=== PATIENT | female | born 1995 | race Caucasian/White ===

== ENCOUNTER 2016-09-17 18:23 | Emergency (ER) | payer OTHER ==
[2016-09-17 18:27] VITALS: BP 111/72; PULSE 47; RESP 16; TEMP 97.5; O2SAT 97
--- NOTE | 2016-09-17 18:36 | EDPHY ---
H & P Time Seen by Provider: 09/17/16 18:29 HPI/ROS: CHIEF COMPLAINT: Left index finger laceration HISTORY OF PRESENT ILLNESS: 21-year-old female with up-to-date tetanus sustained accidental laceration to her left index finger distal phalanx when she accidentally pulsed the honey grader and blender when she was reaching in. Occurred shortly prior to arrival. No paresthesia. PHYSICAL EXAM (Prior to examination, patient consented to physical exam, hands were washed and my usual and customary physical exam procedures followed) 1) GENERAL: Well-developed, well-nourished, alert and oriented. Appears to be in no acute distress. 2) HEAD: Normocephalic 3) HEENT: sclera anicteric 4) LUNGS: Breathing comfortably. 5) SKIN: left index finger distal phalanx ulnar aspect 2 cm well-demarcated laceration. 6) MUSCULOSKELETAL: flexor, extensor function independently tested at the MCP, PIP, D IP with no deficits appreciated. 7) NEUROLOGIC: Two-point discrimination full sensation distally Smoking Status: Never smoked Constitutional: Initial Vital Signs Temperature (C) 36.4 C 09/17/16 18:24 Heart Rate 47 L 09/17/16 18:24 Respiratory Rate 16 09/17/16 18:24 Blood Pressure 111/72 09/17/16 18:24 O2 Sat (%) 97 09/17/16 18:24 O2 Delivery Mode Room Air Allergies/Adverse Reactions: No Known Allergies Allergy (Unverified 09/17/16 18:28) Home Medications: Medication Instructions Recorded MIRENA 09/17/16 MDM/Departure - MDM Procedures: Procedure: Laceration repair. I explained the indications, risks and benefits for both laceration repair and anesthetic administration. Verbal consent was obtained from the patient . The laceration on the left index finger was anesthetized using 0.5% bupivicaine without epinephrine digital nerve block. After anesthetic administered the patient was observed for a period of time and had no apparent adverse effects. The wound was cleaned, prepped, draped in normal sterile fashion and explored to its base. No foreign body seen, no foreign bodies palpated. There were no deep structures involved. No tendon injury was identified. The wound was repaired with 6 simple interrupted 5 O Prolene suture. The wound repair was simple. The procedure was performed by myself. Patient has been informed that scarring will occur, although efforts have been made to minimize this. - Depart Disposition: Home, Routine, Self-Care Clinical Impression: Laceration of left index finger Condition: Good Instructions: Care For Your Stitches (ED), Laceration (ED) Additional Instructions: Return to the ER if you develop redness, swelling, discharge, warmth to the wound, red streaks going up your arm, or any other symptoms that concern you. Referrals: Return, to the ER in 10 days for suture removal [Other] - As per Instructions
== END 2016-09-17 19:21 | disposition home or self-care (01) ==
PROC: 0HQGXZZ Repair Left Hand Skin, External Approach (ICD-10-PCS; principal; 2016-09-17)
DX: S61.211A Laceration without foreign body of left index finger without damage to nail, initial encounter (principal); W45.8XXA Other foreign body or object entering through skin, initial encounter